=== PATIENT | male | born 1970 | race Caucasian/White ===

== ENCOUNTER 2018-12-25 21:43 | Inpatient (IN) ==
--- NOTE | 2018-12-25 22:13 | PROVIDER DOCUMENTATION ---
HPI-Chest Pain - General Chief Complaint: Chest Pain Stated Complaint: CHEST PAIN/SHOULDER/ARM PAIN-HISTORY OF HEART Time Seen by Provider: 12/25/18 22:00 Source: patient Allergies/Adverse Reactions: Patient Allergies Allergy/AdvReac Type Severity Reaction Status Date / Time No Known Allergies Allergy Verified 04/22/18 12:04 Home Medications: Home Medication List Medication Instructions Recorded Confirmed Last Taken Type NK [No Home Medications] 04/22/18 04/22/18 Unknown History - History of Present Illness-CP Nature of Presenting Problem: 48 YOM PRESENTS WITH C/O CP. HE REPORTS THIS HAS BEEN INTERMITTENT FOR THE LAST 6 MONTHS AND USUALLY STOPS WHEN HE RESTS BUT TONIGHT IT DID NOT STOP. HE REPORTS THE PAIN IS PRESSURE LIKE BUT SOMETIMES SHARP. HE REPORTS IT RADIATES TO HIS LEFT ARM AND SHOULDER. HE REPORTS THE CP IS ASSOCIATED WITH NAUSEA AND SWEATING BUT NOT VOMITING. HE DENIES SOB, PALPITATIONS, VOMITING, DIARRHEA OR OTHER ASSOCIATED SYMPTOMS Location: reports: substernal Chest Pain Radiation: reports: arms, shoulders Quality of Pain: reports: none Severity in ED: mild Onset/Duration: 1-3 hours ago, other (INTERMITTENT FOR THE LAST 6 MONTHS) Timing: still present, intermittent Context/Activities at Onset: reports: none Modifying Factors: improves with: nothing Associated Symptoms: reports: denies symptoms Nitro Today/Relief: no nitro taken today Aspirin Treatment Today: 81 mg x 4, provided at home Similar Symptoms Previously?: No Recently Seen Here or By Another Healthcare Provider: No Review of Systems - Adult - REVIEW OF SYSTEMS - ADULT Constitutional: reports: no symptoms reported. denies: see HPI, chills, fever, fatique, night sweats, weight gain, weight loss, other Eyes: reports: no symptoms reported. denies: see HPI, discharge, dry eyes, decreased vision, blurred vision, double vision, eye pain, redness, other Ears, Nose, Mouth & Throat: reports: no symptoms reported. denies: see HPI, ear discharge, ear pain, hearing loss, tinnitus, epistaxis, sinus problem, nose pain, loose teeth, mouth/dental pain, mouth swelling, hoarseness, throat pain, throat swelling, other Cardiovascular: reports: chest pain. denies: no symptoms reported, see HPI, edema, heart murmur, irregular heart rate, orthopnea, palpitations, poor circulation, PND, syncope, other Respiratory: reports: no symptoms reported. denies: see HPI, chronic cough, cough, dyspnea on exertion, excessive sputum production, hemoptysis, pleurisy, shortness of breath, wheezing, other Gastrointestinal: reports: no symptoms reported. denies: see HPI, abdominal pain, hematemesis, constipation, diarrhea, difficulty swallowing, frequent heartburn, nausea, poor appetite, rectal bleeding, vomiting, other Genitourinary: reports: no symptoms reported. denies: see HPI, dysuria, discharge, frequency, flank pain, frequent UTI's, hematuria, hesitency, incontinence, urinary retention, urgency, other Musculoskeletal: reports: no symptoms reported. denies: see HPI, bone pain, back pain, frequent leg cramps, joint pain, joint swelling, muscle aches, muscle weakness, neck pain, other Integumentary: reports: no symptoms reported. denies: see HPI, hives, hair loss, itching, mole changes, nail changes, rash, skin sores/ulcer, skin thickening, other Neurological: reports: no symptoms reported. denies: see HPI, ataxia, d izziness/vertigo, headache/migraines, loss of balance, numbness, paresthesia, seizure, slurred speech, syncope, tremors, other Psychiatric: reports: no symptoms reported. denies: see HPI, anxiety, anti- depressant use, alcohol/drug dependence, depression, emotional problems, insomnia, panic attacks, suicidal thoughts, other Endocrine: reports: no symptoms reported. denies: see HPI, change in skin pigment, excessive sweating, goiter, cold intolerance, heat intolerance, increased hunger, increased thirst, polyuria, other Hematologic/Lymphatic: reports: no symptoms reported. denies: see HPI, blood clots, easy bruising, low blood count, lymphedema, prolonged bleeding, swollen lymph nodes, transfusions, other Allergic/Immunologic: reports: no symptoms reported. denies: see HPI, allergic reactions, allergic rhinitis, asthma, eczema, food allergy, frequent infections, hay fever, hives, positive PPD, urticaria, other Past History - Adult - PAST MEDICAL HISTORY-ADULT Review of Records: reports: Nursing Assessment Review, Social history reviewed & non-contributory. Major Childhood Illnesses: reports: denies history Cardiovascular: reports: A-Fib, HTN Respiratory: reports: denies history Gastrointestinal: reports: denies history Obstetrical/Gynecological: reports: denies history Genitourinary: reports: kidney stones Musculoskeletal: reports: arthritis, chronic pain (leg), orthopedic injury Neurological: reports: Seizures/Epilepsy, other (DM neuropathy) Psychiatric: reports: anxiety, depression, other (alcoholism) Endocrine/Immune: reports: Diabetes Other Conditions: reports: denies history - PRIOR SURGERIES/PROCEDURES Surgical/Procedure History: reports: appendectomy, tonsillectomy, orthopedic (extremity) - IMMUNIZATION STATUS Childhood Immunizations: See Nurse Assessment Flu Vaccine: See Nurse Assessment - FAMILY HISTORY Family History: reviewed, not pertinent Physical Exam-General - PHYSICAL EXAM-ADULT Initial Vital Signs Reviewed: Yes - CONSTITUTIONAL General Appearance: appears well, alert, no apparent distress - EYES Eyes: PERRL/EOMI - HEAD, EARS, NOSE, MOUTH & THROAT HENMT: normocephalic/atraumatic, moist mucous membranes, normal ENT inspection - NECK Neck: non-tender, full range of motion, supple - RESPIRATORY Respiratory: chest non-tender, lungs clear, normal breath sounds - CARDIOVASCULAR Cardiovascular: normal peripheral pulses, regular rate, rhythm, no edema, no gallop, no JVD, no murmur - GASTROINTESTINAL (ABDOMEN) Abdominal Exam: normal bowel sounds, non tender, soft - LYMPHATIC Lymphatic: no adenopathy - MUSCULOSKELETAL Back Exam: normal inspection, no CVA tenderness, no vertebral tenderness Extremity: normal range of motion, non-tender, normal gait - SKIN Integumentary: normal color, normal turgor, warm/dry - NEUROLOGIC Neurologic: grossly normal - PSYCHIATRIC Psych/Mental Status: normal mood/affect, oriented x 3 - HEART Score HEART Score: History: Moderately Suspicious HEART Score: ECG: Non-Specific Repolarization Disturbance/LBBB/PM HEART Score: Age: 45-65 Years HEART Score: Risk Factors for Atherosclerotic Disease: > or = 3 Risk Factors or History of Atherosclerotic Disease HEART Score: Troponin: < or = Normal Limit Total HEART Score:: 5 Progress - PLAN OF CARE/RESULTS Progress/Plan/Lab Results: Vital Signs - 8 hr 12/25/18 21:46 12/25/18 22:14 12/25/18 22:55 Temperature 97.7 F Pulse Rate 105 H Respiratory Rate 16 Blood Pressure 190/126 174/123 166/115 O2 Sat by Pulse Oximetry 99 96 95 12/25/18 23:02 12/25/18 23:10 12/25/18 23:32 Temperature Pulse Rate 91 H 88 Respiratory Rate 25 H 22 Blood Pressure 163/118 168/118 O2 Sat by Pulse Oximetry 92 L 95 91 L Laboratory Results - last 24 hr 12/25/18 12/25/18 12/25/18 22:40 22:40 22:40 WBC 8.86 RBC 5.27 Hgb 16.0 Hct 46.6 MCV 88.4 MCH 30.4 MCHC 34.3 RDW Std Deviation 12.4 Plt Count 213 MPV 11.7 H Immature Gran % (Auto) 0.2 Neut % (Auto) 56.8 Lymph % (Auto) 31.7 [place] % (Auto) 8.4 Eos % (Auto) 2.7 Baso % (Auto) 0.2 Immature Gran # (Auto) 0.02 Neut # (Auto) 5.03 Lymph # (Auto) 2.81 [place] # (Auto) 0.74 H Eos # (Auto) 0.24 Baso # (Auto) 0.02 PT 12.2 INR 0.84 PTT (Actin FS) 28.1 Sodium 138 Potassium 4.0 Chloride 100 Carbon Dioxide 22 L Anion Gap 16 BUN 10 Creatinine 1.0 Estimated GFR/1.73 m2 > 60 BUN/Creatinine Ratio 10 Glucose 444 H* Calculated Osmolality 294 Calcium 9.2 Total Bilirubin 0.27 AST 20 ALT 20 Alkaline Phosphatase 89 Creatine Kinase 116 Troponin T Total Protein 6.7 Albumin 4.2 Globulin 2.5 Albumin/Globulin Ratio 1.7 12/25/18 22:40 WBC RBC Hgb Hct MCV MCH MCHC RDW Std Deviation Plt Count MPV Immature Gran % (Auto) Neut % (Auto) Lymph % (Auto) [place] % (Auto) Eos % (Auto) Baso % (Auto) Immature Gran # (Auto) Neut # (Auto) Lymph # (Auto) [place] # (Auto) Eos # (Auto) Baso # (Auto) PT INR PTT (Actin FS) Sodium Potassium Chloride Carbon Dioxide Anion Gap BUN Creatinine Estimated GFR/1.73 m2 BUN/Creatinine Ratio Glucose Calculated Osmolality Calcium Total Bilirubin AST ALT Alkaline Phosphatase Creatine Kinase Troponin T < 0.010 Total Protein Albumin Globulin Albumin/Globulin Ratio Orders Category Date Time Status FSBS [Finger Stick Blood Sugar (ED)] DIRECTED Care 12/25/18 23:59 Active cxr [CHEST-2 VIEWS] [RAD] Stat Exams 12/25/18 21:58 Taken CBC WITH ELECTRONIC DIFF [HEME] Stat Lab 12/25/18 22:40 Completed CK PROFILE [SP CHEM] Stat Lab 12/25/18 22:40 Completed COMPREHENSIVE METABOLIC PANEL [CHEM] Stat Lab 12/25/18 22:40 Completed PROTIME WITH INR [COAG] Stat Lab 12/25/18 22:40 Completed PTT [COAG] Stat Lab 12/25/18 22:40 Completed TROPONIN T Stat Lab 12/25/18 22:40 Completed Insulin Lispro [Humalog] Med 12/25/18 23:44 Discontinued See Protocol SUBQ NOW ONE Morphine Med 12/25/18 22:34 Discontinued 2 mg IV NOW ONE EKG [EKG] Stat Ther 12/25/18 21:56 Ordered Pt signed out to me by EMILY Mosquera, unstable angina, EKG shows new flipped t's in V5-6, will admit the patient Result Diagrams: 12/25/18 22:40 12/25/18 22:40 - EKG 1 Time of EKG reading by physician:: 21:52 EKG Read and Signed by:: Nicanor Miller EKG Interpretation (*Must complete 3 of following elements*): Abnormal Rate: 103 Rhythm: ST [place]: normal QRS: normal [place] Interval: normal ST Wave: non-specific ST changes Prior EKG Comparison: changes noted - XRAY 1 XRAY Study: Chest Impression: Normal - CHANGE OF SHIFT REPORT (ED Provider) 1 Report Given and Care Transferred to:: DR MILLER Time of Transfer: 00:15 Items Pending: Physician Consult/Arrival (AWAITING CALL BACK FROM DR GOMES FOR ADMISSION FOR CP RULEOUT) Departure - Departure Date of Disposition Decision: 12/26/18 Time of Disposition Decision: 01:02 DIAGNOSIS: Hyperglycemia Chest pain Qualifiers: Chest pain type: other chest pain Qualified Code(s): R07.89 - Other chest pain; R07.8 - Other chest pain Disposition: ADMITTED INPATIENT 09 Certified Medical Emergency: Emergent Condition: Stable Referrals and Follow-Ups: None,PCP [Primary Care Provider] - - Critical Care Note This patient required my direct & personal management of CC.: No Attestation - Physician/ GARY Attestation Patient care was provided by Advanced Practice Provider:: Yes Advanced Practice Provider:: Walker,Araceli M. Advanced Practice Provider documentation review:: The Mid-level provider documentation, treatment plan and medical decision making was reviewed by the physician who agrees with all treatment and medical decision making by the MLP. The physician spent face to face time with patient:: No Advanced Practice Provider documentation review:: Supervising physician onsite and consulted in the evaluation and care of this patient. The physician did not have a face to face encounter with the patient.
[2018-12-25] MEDS ORDERED: MORPHINE IV ONE (22:34)
[2018-12-25 22:56] LABS: BASO# 0.02 X1000 (0.0-0.2); BASO% 0.2 % (0.0-0.8); EOS# 0.24 X1000 (0.0-0.7); EOS% 2.7 % (0.0-10.0); HEMATOCRIT 46.6 % (42.0-52.0); IMM GRAN# 0.02 X1000 (0.0-0.04); IMM GRAN% 0.2 % (0.0-0.5); LYMPH# 2.81 X1000 (1.2-3.4); LYMPH% 31.7 % (20.5-51.1); MCH 30.4 PG (27-31); MCHC 34.3 g/dL (33-37); MCV 88.4 FL (81-99); MONO# 0.74 X1000 (0.11-0.59); MONO% 8.4 % (1.7-9.3); MPV 11.7 FL (7.4-10.4); NEUT# 5.03 X1000 (1.4-6.5); NEUT% 56.8 % (42.2-75.2); PLT 213 X1000 (130-400); RBC 5.27 XMIL (4.7-6.1); RDW 12.4 % (11.5-14.5); WBC 8.86 X1000 (4.8-10.8)
[2018-12-25 23:06] LABS: INR 0.84; PROTIME 12.2 Seconds (11.0-16.0)
[2018-12-25 23:07] LABS: PTT 28.1 Seconds (22.3-41.8)
[2018-12-25 23:42] LABS: AGAP 16; ALB/GLOB RATIO 1.7; ALBUMIN 4.2 g/dL (3.5-5.0); ALKALINE PHOSPHATASE 89 U/L (32-122); BUN 10 mg/dL (8-22); CALCIUM 9.2 mg/dL (8.8-10.2); CHLORIDE 100 mmol/L (98-107); CK PROFILE 116 U/L (24-204); COSMO 294; ESTIMATED GFR > 60; GLUCOSE 444 mg/dL (70-104); GOT 20 U/L (10-34); GPT 20 U/L (10-44); SODIUM 138 mmol/L (136-145); TCO2 22 mmol/L (25-35); TOTAL BILIRUBIN 0.27 mg/dL (0.20-1.00); TOTAL PROTEIN 6.7 g/dL (6.3-8.3)
[2018-12-25] MEDS ORDERED: HUMALOG SUBQ ONE (23:44)
--- NOTE | 2018-12-26 01:42 | HISTORY AND PHYSICAL ---
PRIMARY CARE PHYSICIAN: None. CHIEF COMPLAINT: Chest pain. HISTORY OF PRESENTING ILLNESS: A 48-year-old male with a history of diabetes mellitus type 2 and hypertension, had presented to emergency department with complaint of chest pain. He describes it as substernal with radiation to left upper extremity. The patient states that it seemed to be worsening. Subsequently, had come to the emergency department. In the ED, he was evaluated and due to presenting symptoms, it was thought that we will place him for observation for further evaluation and management. At the time of my examination, he denied any headache, fever, chills, nausea, vomiting, diarrhea, hemoptysis, melena, weight changes, but complained of chest pain. PAST MEDICAL HISTORY: Includes diabetes mellitus type 2, hypertension. PAST SURGICAL HISTORY: Left lower extremity surgery, tonsillectomy, appendectomy. ALLERGIES: No known drug allergies. CURRENT MEDICATIONS: He does not recall and nursing staff will reconcile. SOCIAL HISTORY: He smokes occasional cigars. History of alcohol abuse in the past. Denies any history of drug use. FAMILY HISTORY: Positive for coronary artery disease in Mother. REVIEW OF SYSTEMS: Fourteen-point review of system is as in HPI. Other systems negative. PHYSICAL EXAMINATION: GENERAL: Cooperative, friendly male. He is resting more comfortably now. VITAL SIGNS: Temperature 97.7 degrees, pulse 105, respirations 16, blood pressure 190/126. HEENT: Atraumatic, normocephalic. Extraocular movements intact. PERRLA. NECK: Supple. CHEST: Clear to auscultation. CARDIOVASCULAR: Regular rate and rhythm. S1, S2. ABDOMEN: Soft. Positive bowel sounds. EXTREMITIES: No edema. NEUROLOGIC: He is awake, alert, oriented x3. GENITOURINARY: No bladder distention. SKIN: Warm. LABORATORIES AND STUDIES: WBCs 8.86, hemoglobin 16.0, hematocrit 46.6, platelets 213,000. Sodium 138, potassium 4.0, chloride 100, CO2 of 22, BUN is 10, creatinine 1.0. Glucose 444. Troponin 0.010. ASSESSMENT: A 48-year-old male with a history of diabetes mellitus type 2 and hypertension, presented to emergency department with 1-day history of having chest pain. We will place the patient for observation for further evaluation and management. 1. Chest pain. 2. Diabetes mellitus type 2 with hyperglycemia. 3. Hypertension. PLAN: 1. We will admit patient to medical floor with telemetry. 2. Continue with cardiac workup. Check EKG, serial cardiac enzymes. Have patient continue on aspirin. Use nitroglycerin p.r.n. chest pain. 3. We will consult Cardiology. 4. Monitor blood glucose closely and put patient on sliding scale insulin regimen. 5. We will monitor blood pressure. Resume antihypertensive agents. 6. Put patient on DVT prophylaxis with SCD and Lovenox. 7. We will continue to follow and reassess, make further recommendation based on patient's clinical course. cc: Kar Nguyen MD
[2018-12-26] MEDS ORDERED: ZOFRAN IV PRN (02:40)
[2018-12-26] MEDS ORDERED: NITROGLYCERIN SL PRN (02:40)
[2018-12-26] MEDS: LOVENOX SUBQ SCH (03:37)
--- NOTE | 2018-12-26 04:59 | EKG Report ---
Test Performed on : 12/25/2018 9:50:06 PM Test Reason : cp Blood Pressure : / mmHG Vent. Rate : 103 BPM Atrial Rate : 103 BPM P-R Int : 126 ms QRS Dur : 102 ms QT Int : 364 ms P-R-T Axes : 036 043 270 degrees QTc Int : 476 ms Sinus tachycardia. Possible Inferior infarct , age undetermined Cannot rule out Anterior infarct , age undetermined ST & T wave abnormality, consider lateral ischemia Abnormal ECG When compared with ECG of 22-APR-2018 12:13, Borderline criteria for Inferior infarct are now present ST elevation has replaced ST depression in Anterior leads ST now depressed in Lateral leads Inverted T waves have replaced nonspecific T wave abnormality in Inferior leads Unconfirmed Result
[2018-12-26] MEDS: HUMULIN R SUBQ SCH ×4 (06:39→23:07)
[2018-12-26] MEDS: PRILOSEC PO SCH (06:39)
--- NOTE | 2018-12-26 07:49 | Diag Imaging Result Doc PS360 ---
EXAM: CHEST-2 VIEWS 12/25/2018 HISTORY: CP TECHNIQUE: PA and lateral chest COMMENT: There is no evidence of acute cardiac or pulmonary disease. Compared to 04/22/2018 there has been no significant change considering differences in technique. IMPRESSION: Stable chest. Electronically signed by Lucas Macedo 12/26/2018 7:48 AM
[2018-12-26] MEDS ORDERED: ASPIRIN PO SCH (09:00)
[2018-12-26] MEDS: PRINIVIL PO SCH ×2 (10:19→23:06)
--- NOTE | 2018-12-26 12:43 | EKG Report ---
Test Performed on : 12/26/2018 12:35:23 PM Test Reason : chest pain Blood Pressure : / mmHG Vent. Rate : 082 BPM Atrial Rate : 082 BPM P-R Int : 122 ms QRS Dur : 104 ms QT Int : 416 ms P-R-T Axes : 030 034 211 degrees QTc Int : 486 ms Normal sinus rhythm. Possible Inferior infarct (cited on or before 25-DEC-2018) Anterior infarct (cited on or before 25-DEC-2018) ST & T wave abnormality, consider lateral ischemia Abnormal ECG When compared with ECG of 25-DEC-2018 21:50, (Unconfirmed) Serial changes of Anterior infarct present Confirmed by Nick Kraft MD ([id number]) on 12/29/2018 8:17:33 PM
--- NOTE | 2018-12-26 12:51 | CARDIOLOGY CONSULTATION ---
DATE: 12/26/2018 HISTORY OF PRESENT ILLNESS: Mr. Doug Worthy is a 48-year-old gentleman with history of hypertension, diabetes, has been noncompliant with his medications. Has not taken any medications for the last couple of years. Comes with complaints of having recurrent episodes of chest discomfort intermittently, retrosternal with some radiation to the back and down the arms. This has been going on off and on for about 6 months. His blood pressure medication and diabetes medications he has not taken as he could not afford the medications. REVIEW OF SYSTEM: A 14-point review of systems was done.Gastrointestinal: There is no history of nausea, vomiting, diarrhea. There is no history of hematemesis or melena. Central nervous system: No focal weakness to suggest a CVA or TIA. Genitourinary: There is no dysuria or hematuria. PAST MEDICAL HISTORY: 1. Hypertension. 2. Diabetes. 3. History of atrial fibrillation, last evaluated at the [facility] in 2014. 4. History of alcohol abuse in the past, quit in 2014. 5. Currently he is not on any medications. OTHER PAST MEDICAL HISTORY: Include left lower extremity surgery, tonsillectomy appendectomy. SOCIAL HISTORY: Next he smokes cigars. PHYSICAL EXAMINATION: General: When he came into the hospital his, blood pressure was 190/126, currently blood pressure 134/70. Cardiovascular system: Normal jugular venous pressure. There no thyromegaly. No carotid bruit. First and second heart sounds were heard. There was no S3 gallop. Respiratory System: Normal air entry. There is no crepitations or rhonchi. Abdomen: Soft, nontender. There was no guarding or rigidity. Bowel sounds were heard. Central nervous system: Alert and oriented. Was moving all 4 extremities. Extremities: Revealed no pedal edema. HEENT: Atraumatic, normocephalic. Pupils were equal and reacting to light. LABORATORY DATA: The patient's cardiac enzymes were negative. WBC 8.86, hemoglobin 16, hematocrit 46, platelet count of 213,000. Glucose 444. Electrocardiogram revealed normal sinus rhythm with nonspecific ST-T changes. ASSESSMENT AND PLAN: 1. Mr. Doug Worthy is a 48-year-old gentleman who has history of hypertension, diabetes, atrial fibrillation in the distant past, has been noncompliant with all his medications, has not been on any medicines, comes with complaints of having recurrent episodes of chest discomfort over the last 6 months, worsened recently. His cardiac enzymes were negative. We will set him up to undergo Cardiolite stress test to rule out ischemia. We will get an echocardiogram to assess cardiac and valvular function. 2. He has been started on lisinopril. Blood pressures are better. We will add beta-blockers to his medical regimen. 3. Diabetes. Continue with his medications as planned. 4. We will add aspirin to his medical regimen. Prior to 2014, he had an episode of atrial fibrillation. He has been noncompliant. Currently he is in sinus rhythm. Thank you for the consult. We will follow hospital course. cc: Adarsh Juan MD
[2018-12-26] MEDS: LOPRESSOR PO SCH (14:14)
[2018-12-26] MEDS: TYLENOL PO PRN (18:53)
[2018-12-26] MEDS: MORPHINE IV PRN (18:54)
[2018-12-27] MEDS: LOVENOX SUBQ SCH ×2 (06:52→18:55)
[2018-12-27] MEDS: HUMULIN R SUBQ SCH ×4 (06:53→21:27)
[2018-12-27] MEDS: PRILOSEC PO SCH (06:55)
[2018-12-27 07:07] LABS: CHOLESTEROL 215 mg/dL (0-200); HDL 30 mg/dL (35-55); LDL 155 mg/dL; TRIGLYCERIDES 148 mg/dL (39-160); VLDL 30 mg/dL
[2018-12-27] MEDS ORDERED: LEXISCAN ONE (08:28)
[2018-12-27] MEDS: ASPIRIN PO SCH (11:33)
[2018-12-27] MEDS: LOPRESSOR PO SCH (11:33)
--- NOTE | 2018-12-27 13:56 | Diag Imaging Result Document ---
PROCEDURE NAME: MYOCARDIAL PERF SCAN, STR/REST - 12/26/2018 LEXISCAN CARDIOLITE STRESS TEST: Lexiscan was infused per standard protocol. Baseline electrocardiogram revealed normal sinus rhythm. Inferior Q-waves were noted with nonspecific ST-T changes. Stress electrocardiogram was nondiagnostic. Following Lexiscan infusion Cardiolite was injected. 28.4 mCi of Cardiolite was injected for the rest phase, 30.9 mCi of Cardiolite was injected for the stress phase. This was a 2 day protocol. Images revealed left ventricle was dilated. There is large size, severe defect in the left ventricular distal anteroapical wall diagnostic of infarct. In addition, there is a large size severe grade fixed defect in the inferior wall diagnostic of infarct. There is reversible perfusion defect in the inferolateral wall suggestive of anahi-infarct ischemia. Left ventricular ejection fraction by gated SPECT was 27%. CONCLUSIONS: 1. No chest pain. 2. Nondiagnostic stress electrocardiogram. Baseline ST-T changes noted. 3. Myocardial perfusion images reveal a cardiomyopathy picture. There is large size severe grade fixed defect in the distal anteroapical wall diagnostic of infarct. In addition, there is a large size severe grade fixed defect in the inferior wall again diagnostic of infarct. There is low-grade anahi-infarct ischemia in the inferolateral wall. Left ventricular ejection fraction by gated SPECT was 27%. cc: MD Maribell Wilson PA
[2018-12-27] MEDS: TYLENOL PO PRN (16:26)
--- NOTE | 2018-12-27 16:34 | ECHO REPORT ---
ORDER DATE: 12/27/2018 INTERPRETING PHYSICIAN: Dr. Adarsh Juan. ECHOCARDIOGRAPHIC MEASUREMENTS: 1. Interventricular septum 1.2 cm. 2. Left ventricular posterior wall 1.1 cm. 3. Diastolic diameter 5.6 cm. 4. Left atrium 3.9 cm. 5. Aorta 3.5 cm. SUMMARY OF THE 2-DIMENSIONAL IMAGIN. Normal left ventricular cavity size with severely reduced systolic function. 2. Estimated ejection fraction of 30%. 3. There is anteroseptal apical hypokinesis 4. Aortic valve leaflets are trileaflet. 5. Mitral valve was normal. 6. Tricuspid valve was normal. 7. Pulmonic valve was normal. 8. Peak velocity across the aortic valve less than 2 m/sec. 9. There is no aortic stenosis or regurgitation. 10. There is mild mitral regurgitation. 11. Mild tricuspid regurgitation. 12. Peak velocity across the tricuspid valve was less than 2 m/sec. 13. There is no pericardial effusion. cc: Adarsh Juan MD
[2018-12-27] MEDS: MORPHINE IV PRN (18:51)
[2018-12-27] MEDS: ENTRESTO 24 MG-26 MG TABLET PO SCH (21:27)
--- NOTE | 2018-12-27 21:58 | PROGRESS NOTE ---
DATE: 12/27/2018 SUBJECTIVE: Patient reports some chest discomfort, but no chest pain. That is on and off. He feels sometimes fatigued. Denies any nausea, vomiting. OBJECTIVE: Vital Signs: Temperature 98.4 degrees, heart rate 75, respiratory rate 18, blood pressure 120/84, O2 saturation 98% on room air. General: This is a 48-year-old male, lying in bed, in no acute distress. Cardiovascular: S1, S2 heard. No murmurs, gallops, or rubs. Regular rate and rhythm. Respiratory: Clear bilaterally to auscultation. No work of breathing or using accessory muscles. Abdomen: Soft, nontender to palpation. Bowel sounds present. No organomegaly. Extremities: No clubbing, cyanosis, or edema. Peripheral pulses present in both legs. Respiratory: The patient is alert, oriented x3. Moves 4 extremities. LABORATORY DATA: Reviewed. ASSESSMENT AND PLAN: 1. Chest pain. This is a patient who has history of hypertension, diabetes mellitus, and atrial fibrillation in the past. He came to the hospital complaining of chest pain. Patient has a strong family history with mom who of coronary artery disease when she was 36. The echocardiogram today basically showed severely reduced systolic function with ejection fraction of 30%, with anteroseptal apical hypokinesis. The myocardial perfusion test also shows some low-grade anahi-infarct ischemia in the inferolateral wall, and the ejection fraction was calculated to be 27%. In that regard, Cardiology is planning to do a left heart catheterization on Sunday. Patient has been started on Lovenox 1 mg/kg every 12 hours and aspirin as well. We will continue monitoring this patient closely. 2. Diabetes mellitus type 2. The patient is on sliding scale insulin at home. Apparently, he is not using anything. 3. Hypertension. Blood pressure is under control. Patient has been started on Entresto and metoprolol. Blood pressure has been between 100 and 128. Will continue with the same management. Lisinopril has been stopped. 4. Disposition. Will see what left heart catheterization on Sunday shows. cc: Oscar Canales MD
[2018-12-28] MEDS: MORPHINE IV PRN ×3 (04:29→23:31)
[2018-12-28] MEDS: PRILOSEC PO SCH (06:49)
[2018-12-28] MEDS: LOVENOX SUBQ SCH ×2 (06:50→17:39)
[2018-12-28] MEDS: HUMULIN R SUBQ SCH ×4 (06:50→21:14)
[2018-12-28] MEDS: ENTRESTO 24 MG-26 MG TABLET PO SCH ×2 (09:53→21:14)
[2018-12-28] MEDS: ASPIRIN PO SCH (09:53)
[2018-12-28] MEDS: LOPRESSOR PO SCH (09:53)
[2018-12-28 10:59] LABS: HEMATOCRIT 46.7 % (42.0-52.0); HEMOGLOBIN 15.8 g/dL (14.0-18.0); MCHC 33.8 g/dL (33-37); MCV 88.8 FL (81-99); MPV 11.6 FL (7.4-10.4); RBC 5.26 XMIL (4.7-6.1); RDW 12.2 % (11.5-14.5); WBC 9.01 X1000 (4.8-10.8)
[2018-12-28 11:00] LABS: HEMOGLOBIN A1C 9.1 % (4.8-6.0)
[2018-12-28 11:10] LABS: AGAP 10; BUN 11 mg/dL (8-22); CHLORIDE 101 mmol/L (98-107); COSMO 284; CREATININE 1.1 mg/dL (0.7-1.2); ESTIMATED GFR > 60; GLUCOSE 287 mg/dL (70-104); POTASSIUM 4.1 mmol/L (3.5-5.1); SODIUM 137 mmol/L (136-145); TCO2 26 mmol/L (25-35)
--- NOTE | 2018-12-28 21:07 | PROGRESS NOTE ---
DATE: 12/28/2018 SUBJECTIVE: The patient reports feeling fine. Denies any chest pain, shortness of breath. OBJECTIVE: Vital Signs: Temperature 97.9 degrees, heart rate 67, respiratory rate 20, blood pressure 132/79, O2 saturation 99% on room air. General: This is a 48-year-old, male, lying in bed, in no acute distress. Cardiovascular: S1, S2 heard. No murmurs, gallops, or rubs. Regular rate and rhythm. Respiratory: Clear bilaterally to auscultation. No work of breathing or use of accessory muscles. Abdomen: Soft, nontender to palpation. Bowel sounds present. No organomegaly. Extremities: No clubbing, cyanosis, or edema. Peripheral pulses present in both legs. Neurological: Patient is alert and oriented x3. Moves 4 extremities. LABORATORY DATA: Reviewed. ASSESSMENT AND PLAN: 1. Chest pain. Patient was admitted for this condition. Lexiscan basically showed severely depressed left ventricular systolic function. In that regard, in order to continue with the workup for this condition, we are going to do a left heart catheterization on Sunday to have a better visualization of the coronary anatomy and see the results of this cardiomyopathy. At this point, we will continue with Entresto and metoprolol. The patient has mentioned it to me that because of his lack of insurance, he wants to try some medications that are not really expensive. I do not think he will be able to afford Entresto. I think we will be able to continue with beta-blockers. 2. Hypertension. Blood pressure is under control. We will continue with same management. 3. Diabetes mellitus type 2. The patient is on sliding scale insulin and he will need insulin at home. I think will start insulin 70/30 at discharge. 4. Disposition. We will continue to monitor this patient closely. Plan is to do left heart catheterization on Sunday. cc: Oscar Canales MD
[2018-12-28] MEDS: LIPITOR PO SCH (21:14)
[2018-12-28] MEDS: COREG PO SCH (21:14)
--- NOTE | 2018-12-28 22:58 | PROGRESS NOTE ---
DATE: 12/28/2018 SUBJECTIVE: Patient relates some transient chest discomfort earlier but presently denies chest discomfort. There has been no shortness of breath. OBJECTIVE: Blood pressure 126/84 to 147/98, heart rate 72, oxygen saturation 99%. There is no significant jugular venous distention.Chest: Clear to auscultation. Cardiac Exam: Reveals a regular rate and rhythm without appreciable murmur or gallop. There is no evidence of peripheral edema. LABORATORY DATA: Includes a white blood cell count 9.0, hematocrit 46.7, hemoglobin 15.8, platelet count 219,000. Sodium 137, potassium 4.1, chloride 101, carbon dioxide 26, BUN 11, creatinine 1.1. Glucose 287. Triglycerides 148, total cholesterol 215, LDL cholesterol 155, HDL cholesterol 30. IMPRESSION: 1. Recurrent angina. 2. Abnormal stress myocardial perfusion study demonstrating fixed defect in the anteroapical region in the inferior wall with left ventricular ejection fraction of 20%. There was some low-grade anahi-infarct ischemia in the inferolateral wall. Multivessel coronary disease and ischemic cardiomyopathy suggested. 3. Diabetes mellitus. 4. Hypertension. PLAN: 1. Cardiac catheterization with selective coronary angiography planned for Sunday. 2. Initiate intensive statin therapy. 3. Arrange resting thallium study for viability which may help guide therapy. cc: Kole Sandoval MD MTDD
[2018-12-29] MEDS: PRILOSEC PO SCH (06:30)
[2018-12-29] MEDS: LOVENOX SUBQ SCH (06:31)
[2018-12-29] MEDS: HUMULIN R SUBQ SCH ×4 (06:31→20:29)
[2018-12-29 07:15] LABS: BASO# 0.02 X1000 (0.0-0.2); BASO% 0.2 % (0.0-0.8); EOS# 0.26 X1000 (0.0-0.7); EOS% 3.2 % (0.0-10.0); HEMATOCRIT 49.2 % (42.0-52.0); HEMOGLOBIN 16.7 g/dL (14.0-18.0); IMM GRAN# 0.02 X1000 (0.0-0.04); IMM GRAN% 0.2 % (0.0-0.5); LYMPH# 3.48 X1000 (1.2-3.4); LYMPH% 43.2 % (20.5-51.1); MCHC 33.9 g/dL (33-37); MCV 88.5 FL (81-99); MONO# 0.67 X1000 (0.11-0.59); MONO% 8.3 % (1.7-9.3); MPV 11.3 FL (7.4-10.4); NEUT# 3.61 X1000 (1.4-6.5); NEUT% 44.9 % (42.2-75.2); PLT 225 X1000 (130-400); RBC 5.56 XMIL (4.7-6.1); RDW 12.4 % (11.5-14.5); WBC 8.06 X1000 (4.8-10.8)
[2018-12-29 07:33] LABS: INR 0.88; PROTIME 12.7 Seconds (11.0-16.0)
[2018-12-29 07:45] LABS: AGAP 13; BUN 11 mg/dL (8-22); CALCIUM 8.7 mg/dL (8.8-10.2); CHLORIDE 102 mmol/L (98-107); COSMO 285; ESTIMATED GFR > 60; GLUCOSE 217 mg/dL (70-104); POTASSIUM 3.9 mmol/L (3.5-5.1); SODIUM 140 mmol/L (136-145); TCO2 25 mmol/L (25-35)
[2018-12-29] MEDS: ASPIRIN PO SCH (09:32)
[2018-12-29] MEDS: COZAAR PO SCH (09:32)
[2018-12-29] MEDS: COREG PO SCH ×2 (09:33→20:29)
[2018-12-29] MEDS: LIPITOR PO SCH (09:33)
--- NOTE | 2018-12-29 12:36 | PROGRESS NOTE ---
DATE: 12/29/2018 SUBJECTIVE: Patient reports feeling fine. He mentioned that he is having headaches for the last 3 days and he does not usually have headaches. He has not been given any nitroglycerin recently. OBJECTIVE: Vital Signs: Temperature 98.0 degrees, heart rate 67, respiratory rate 18, blood pressure 106/73, O2 saturation 97% on room air. General Examination: This is a 48-year-old male, lying in bed, in no acute distress. Cardiovascular: No S2 heard. No murmurs, gallops, or rubs. Regular rate and rhythm. Respiratory: Clear bilaterally to auscultation. No work of breathing or using accessory muscles. Abdomen: Soft, nontender to palpation. Bowel sounds present. No organomegaly. Extremities: No clubbing, cyanosis, or edema. Peripheral pulses present in both legs. Neurological: The patient is alert and oriented x3. Moves 4 extremities. LABORATORY DATA: Reviewed. ASSESSMENT AND PLAN: 1. Chest pain/cardiomyopathy. Patient clinically feeling fine with no chest pain. At this point, we are awaiting for left heart catheterization tomorrow and also recent thallium study for viability ordered by Cardiology as well. We will see what those exams show. 2. Hypertension. Blood pressure is under control. We will continue with the same management. 3. Diabetes mellitus type 2. We will continue with sliding scale insulin and accuchecks before meals and also at bedtime. 4. Disposition. As we mentioned before, pending left heart catheterization and resting thallium study. cc: Oscar Canales MD MTDD
--- NOTE | 2018-12-29 13:45 | Diag Imaging Result Doc PS360 ---
CT HEAD W/O CONTRAST - 12/29/2018 INDICATION: persistent headache COMPARISON: 07/06/2017 FINDINGS: There is stable mild periventricular white matter chronic microvascular disease. The ventricles and sulci are normal in size and contour. No intracranial mass or hemorrhage. The skull is intact. The sinuses, mastoids, and middle ears are clear. IMPRESSION: No acute disease or change from prior. This exam was performed using automated exposure control, adjustment of mA or kV according to patient size, and/or use of iterative reconstruction technique Electronically signed by Ted Donaldson 12/29/2018 1:43 PM
[2018-12-29] MEDS: TYLENOL PO PRN (14:12)
[2018-12-29] MEDS: MORPHINE IV PRN (20:29)
[2018-12-30] MEDS: HUMULIN 70/30 SUBQ SCH (06:14)
[2018-12-30] MEDS: HUMULIN R SUBQ SCH ×4 (06:14→21:15)
[2018-12-30] MEDS: PRILOSEC PO SCH ×2 (06:14→10:24)
[2018-12-30 06:28] LABS: HEMATOCRIT 50.6 % (42.0-52.0); HEMOGLOBIN 17.5 g/dL (14.0-18.0); MCH 31.1 PG (27-31); MCHC 34.6 g/dL (33-37); MPV 11.1 FL (7.4-10.4); RBC 5.62 XMIL (4.7-6.1); RDW 12.5 % (11.5-14.5); WBC 8.18 X1000 (4.8-10.8)
[2018-12-30 06:44] LABS: INR 0.88; PROTIME 12.6 Seconds (11.0-16.0); PTT 28.2 Seconds (22.3-41.8)
[2018-12-30 06:52] LABS: AGAP 12; BUN 11 mg/dL (8-22); CALCIUM 9.2 mg/dL (8.8-10.2); CHLORIDE 103 mmol/L (98-107); COSMO 279; ESTIMATED GFR > 60; GLUCOSE 176 mg/dL (70-104); POTASSIUM 4.1 mmol/L (3.5-5.1); SODIUM 138 mmol/L (136-145); TCO2 23 mmol/L (25-35)
[2018-12-30] MEDS: COREG PO SCH ×2 (10:22→21:15)
[2018-12-30] MEDS: LIPITOR PO SCH (10:22)
[2018-12-30] MEDS: COZAAR PO SCH (10:22)
[2018-12-30] MEDS: ASPIRIN PO SCH (10:22)
--- NOTE | 2018-12-30 11:06 | CARDIOLOGY PROGRESS NOTE ---
DATE: 12/30/2018 SUBJECTIVE: Overnight, no chest pain. There are no palpitations. There is no dizziness or syncope. OBJECTIVE: Vital Signs: Blood pressure 118/84. Cardiovascular System: Normal jugular venous pressure. There was no thyromegaly. There was no carotid bruit. First and second heart sounds were heard. There is no S3, S4, or gallop. Respiratory System: Normal air entry. There are no crepitations or rhonchi. Abdomen was soft, nontender. There was no guarding or rigidity. Bowel sounds were heard. Central Nervous System: Alert and was moving all 4 extremities. Examination of the extremities revealed no pedal edema. HEENT: Atraumatic, normocephalic. Pupils were equal and reacting to light. Laboratory Examination: Revealed a sodium of 138, potassium 4.1, BUN 11, creatinine 1.0. PROBLEM LIST: 1. The patient has been noncompliant. 2. Chest pain with abnormal stress test. 3. Hypertension. 4. Left ventricular dysfunction. 5. Diabetes. PLAN: 1. The patient is going to have a thallium viability scan, followed by a left heart catheterization today. The risks, benefits, and alternatives were explained. Patient will be set up for a left heart catheterization as well today. 2. As far as his medications are concerned, he is on omeprazole 20, losartan 50, insulin 70/30 with 15 units subcutaneous a.c., atorvastatin 40, enteric-coated aspirin 81 mg a day, Coreg 6.25 mg twice daily. He was on Lovenox which has been held this morning. cc: Adarsh Juan MD
[2018-12-30] MEDS ORDERED: NS ONE (12:01)
[2018-12-30] MEDS ORDERED: HEPARIN ONE (12:01)
[2018-12-30] MEDS ORDERED: XYLOCAINE 1% ONE (12:03)
[2018-12-30] MEDS ORDERED: HEPARIN 1000 UNITS/NS 2,000 UNIT/1,000 ML IV.SOLN ONE (12:12)
[2018-12-30] MEDS ORDERED: MORPHINE ONE (12:30)
[2018-12-30] MEDS ORDERED: VERSED ONE (12:30)
[2018-12-30] MEDS ORDERED: NS 1,000 ML ONE (12:31)
[2018-12-30] MEDS ORDERED: ANESTHESIA PB SET 88 IN 5742 ONE (12:31)
[2018-12-30] MEDS ORDERED: CLAVE TWINSITE 32 IN 11959 ONE (12:31)
[2018-12-30] MEDS ORDERED: NS 1,000 ML IV SCH ×2 (14:00→15:15)
--- NOTE | 2018-12-30 14:15 | EKG Report ---
Test Performed on : 12/30/2018 2:09:57 PM Test Reason : post [facility] Blood Pressure : / mmHG Vent. Rate : 083 BPM Atrial Rate : 083 BPM P-R Int : 122 ms QRS Dur : 108 ms QT Int : 378 ms P-R-T Axes : 040 027 211 degrees QTc Int : 444 ms Normal sinus rhythm. Inferior infarct (cited on or before 25-DEC-2018) Cannot rule out Anterior infarct (cited on or before 25-DEC-2018) T wave abnormality, consider lateral ischemia Abnormal ECG When compared with ECG of 26-DEC-2018 12:35, No significant change was found Confirmed by Swapnil OLIVA, Nick ([id number]) on 01/01/2019 8:56:26 AM
[2018-12-30] MEDS: LOVENOX SUBQ SCH (17:01)
--- NOTE | 2018-12-30 18:11 | PROGRESS NOTE ---
DATE: 12/30/2018 SUBJECTIVE: I checked this patient in the morning and he reported no chest pain, no palpitations, no shortness of breath. OBJECTIVE: Vital Signs: Temperature 98.7 degrees, heart rate 86, respiratory rate 20, blood pressure 112/73, O2 saturation 100% on room air. General: This is a 48-year-old male, lying in bed, in no acute distress. HEENT: Head is normocephalic, atraumatic. Neck: No JVD noted. No carotid bruits. No lymphadenopathy. No thyromegaly. Cardiovascular: S1, S2 heard. No murmurs, gallops, or rubs. Regular rate and rhythm. Respiratory: Clear bilaterally to auscultation. No work of breathing or using accessory muscles. Abdomen: Soft, nontender to palpation. Bowel sounds present. No organomegaly. No signs of peritoneal irritation. Extremities: No clubbing, cyanosis, or edema. Peripheral pulses present in both legs. Neurological: Patient alert and oriented x3. Moves all 4 extremities. LABORATORY DATA: Reviewed. ASSESSMENT AND PLAN: 1. Chest pain, newly found left ventricular systolic dysfunction. Patient clinically is doing fine. He was initially admitted to the hospital for chest pain, and we found out in the Lexiscan stress test this low ejection fraction. In that regard, we have consulted Cardiology who has decided to do a thallium viability scan followed by left heart catheterization. Depending upon those results, we will see what is the next step in the management of this patient. Cardiology input appreciated. 2. Hypertension. Blood pressure is under control. We will continue with the same management. 3. Diabetes mellitus type 2. We will continue with sliding scale insulin, Accu-Chek before meals and also at bedtime. 4. Disposition. Depending upon the results of those tests ordered by Cardiology. cc: Oscar Canales MD
[2018-12-30] MEDS: MORPHINE IV PRN (21:37)
[2018-12-31 05:41] LABS: HEMATOCRIT 47.4 % (42.0-52.0); HEMOGLOBIN 16.1 g/dL (14.0-18.0); MCH 30.9 PG (27-31); MPV 11.5 FL (7.4-10.4); RBC 5.21 XMIL (4.7-6.1); RDW 12.5 % (11.5-14.5); WBC 8.77 X1000 (4.8-10.8)
[2018-12-31] MEDS: PRILOSEC PO SCH (06:23)
[2018-12-31] MEDS: HUMULIN 70/30 SUBQ SCH (06:25)
[2018-12-31] MEDS: HUMULIN R SUBQ SCH ×2 (06:26→11:13)
[2018-12-31] MEDS: LOVENOX SUBQ SCH (06:26)
[2018-12-31] MEDS: COZAAR PO SCH (08:43)
[2018-12-31] MEDS: LIPITOR PO SCH (08:43)
[2018-12-31] MEDS: ASPIRIN PO SCH (08:43)
[2018-12-31] MEDS: COREG PO SCH (08:43)
--- NOTE | 2018-12-31 10:06 | PROGRESS NOTE ---
DATE: 12/31/2018 SUBJECTIVE: The patient reports feeling fine. Denies any chest pain, fever or chills. OBJECTIVE: Vital Signs: Temperature 97.9 degrees, heart rate 69, respiratory rate 16, blood pressure 108/81, O2 saturation 99% on room air. General Examination: This is a 48-year-old male, lying in bed in no acute distress. Cardiovascular exam: S1, S2 heard. No murmurs, gallops, or rubs. Regular rate and rhythm. Respiratory exam: Clear bilaterally to auscultation. No work of breathing or using accessory muscles. Abdomen: Soft, nontender to palpation. Bowel sounds present. No organomegaly. No signs of peritoneal irritation. Extremities: No clubbing, cyanosis, or edema. Peripheral pulses present in both legs. Neurological exam: Patient alert and oriented x3. Moves 4 extremities. LABORATORY DATA: Reviewed. ASSESSMENT AND PLAN: 1. Coronary artery disease/chest pain/left ventricular systolic dysfunction. Clinically this patient is not having any more episodes of chest pain. The patient was supposed to have left heart catheterization yesterday. I do not have the official report, but apparently has been verbally reported that he has diffuse coronary artery disease. In that regard, he also is going to have thallium viability scan the second part today, and we will see what Cardiology decides. Apparently patient has been told that he will go to [facility] for further management. We will follow Cardiology recommendation. 2. Hypertension. Blood pressure is under control. We will continue with the same management. 3. Diabetes mellitus type 2. We will continue with the sliding scale insulin. Accu-Chek before meals and also at bedtime. 4. Disposition: We are following the lead from Cardiology. cc: Oscar Canales MD
--- NOTE | 2018-12-31 11:06 | Diag Imaging Result Document ---
PROCEDURE NAME: MYOCARDIAL PERFU SCAN, REST - 12/30/2018 PROCEDURE: Thallium viability scan. FINDINGS: 3.4 mCi of thallium was injected per standard protocol. Viability scans were done over a 24 hour period. There is a large size fixed defect in the inferior wall and in the left ventricular apex. There is no viability in this area. However, viability is noted in the anterior wall. CONCLUSIONS: 1. Myocardial viability is present in the anterior wall. 2. There is large size fixed defect in the inferior wall and in the left ventricular apex diagnostic of scar. cc: MD Kole Wilson MD [facility]
[2018-12-31 11:51] VITALS: BP 108/82
[2018-12-31] MEDS ORDERED: INSULIN PEN NEEDLES ONE (15:14)
--- NOTE | 2019-01-01 13:35 | DISCHARGE SUMMARY ---
ADMISSION DATE: 12/26/2018 DISCHARGE DATE: 12/31/2018 DISCHARGE DIAGNOSES: 1. Coronary artery disease. 2. Chest pain. 3. Diabetes mellitus type 2. 4. Hypertension. CONSULTATIONS: Dr. Juan from cardiology. PROCEDURES: 1. Myocardial perfusion nuclear medicine showed a cardiomyopathy picture with an ejection fraction of 27%. There is also a large size, severe, fixed defect in the inferior wall, again diagnostic of infarct, a low-grade anahi-infarct ischemia in the inferolateral wall. 2. Head CT was unremarkable. 3. Echocardiogram Doppler showed ejection fraction of 30% with anteroseptal, apical hypokinesis. No pericardial effusion. 4. Cardiac catheterization dictation is still pending. HOSPITAL COURSE: In brief, this is a 48-year-old, male with a past medical history of hypertension, diabetes mellitus, apparently he has not been compliant with his medication. He presented to the emergency department complaining of chest pain. He has a strong family history of coronary artery disease with mom who of a myocardial infarction at age 36. He was evaluated by cardiology and they ordered initially an echocardiogram with a Lexiscan, with the results as above. Then a left heart catheterization was performed with results not reported yet officially but verbally, it was reported that he has diffuse coronary artery disease. Then they consulted with cardiology service at [facility] and they finally decided to send this patient to [facility] for further evaluation and treatment. DISCHARGE PHYSICAL EXAMINATION: Temperature 97.9 degrees, heart rate 69, respiratory rate 16, blood pressure 108/81, O2 saturation 99% on room air. General Examination: This is a 48-year-old male, lying in bed, in no acute distress. Cardiovascular Examination: S1 and S2 heard. No murmurs, gallops, or rubs. Regular rate and rhythm. Respiratory Examination: Clear bilaterally to auscultation. No work of breathing or using accessory muscles. Abdomen: Soft. Nontender to palpation. Bowel sounds present. No organomegaly. Extremities: No clubbing, cyanosis, or edema. Peripheral pulses present in both legs. Neurological Examination: The patient is alert and oriented x3. Moves 4 extremities. DISCHARGE DISPOSITION: Patient is being transferred to [facility]. He is going under the care of the cardiology service. cc: Oscar Canales MD
--- NOTE | 2019-01-03 09:44 | CARDIAC CATH REPORT ---
PROCEDURE NAME: - PROCEDURES PERFORMED: 1. Left heart catheterization. 2. Selective coronary angiography. 3. Left ventriculography. INDICATIONS: Further evaluation of ischemic cardiomyopathy and abnormal stress myocardial perfusion study in 48-year-old diabetic. Entry site right femoral artery catheters used: 5-[place] JL4, 3DRC, and angled pigtail. TECHNIQUE: After intravenous sedation with morphine and Versed, local anesthesia with lidocaine was applied over right femoral artery. Arterial access was established with placement of a 5- [place] sheath in the right femoral artery using modified Seldinger technique. Selective coronary angiography was performed followed by left heart catheterization and left ventriculography. Upon completion of procedure, arterial sheath was removed from right femoral artery and hemostasis facilitated with manual pressure. The patient tolerated the procedure without apparent complications. FINDINGS: Hemodynamics: Aortic pressure 117/45 with a mean of 65, left ventricular pressure 112 over EDP of 12. Comments on hemodynamics: There is no significant gradient across aortic valve demonstrated on pullback from left ventricle. ANGIOGRAPHY: 1. Left ventriculogram: The left ventricle is borderline enlarged with estimated left ventricular ejection fraction 25 to 30 percent. There is akinesis of the apex, apical inferior wall, and basal to mid inferior wall. There is hypokinesis of the mid inferior wall. There is no significant mitral regurgitation. 2. Left main coronary: Left main coronary is free of significant coronary stenosis. 3. Left anterior descending coronary: Left anterior descending coronary demonstrates a moderate very proximal stenosis of approximately 50% severity. There is a large diagonal branch arising from the proximal left anterior descending coronary that demonstrates a severe (90%) ostial stenosis. Within this large first diagonal branch there is a stenosis in the more superior ramus of the diagonal branch of about 80% severity. Beyond this point, the left anterior descending coronary demonstrates a very severe coronary atherosclerosis in a diffuse pattern. The proximal to mid left anterior descending coronary demonstrates an 80 to 90 percent stenosis. A small second diagonal branch arises just thereafter. There is moderate diffuse atherosclerosis for a short segment, after which a medium-sized third diagonal branch is demonstrated which demonstrates severe diffuse atherosclerosis. The apical portion of the left anterior descending coronary demonstrates severe diffuse atherosclerosis with up to 95% narrowing. The very distal left anterior descending coronary consists of a small branch serving the very apex left ventricle. 4. Left circumflex: The left circumflex coronary demonstrates a severe (80%) proximal stenosis. The mid to distal left anterior descending coronary also demonstrates a severe (greater than 90%) stenosis. 5. Right coronary: The right coronary demonstrates proximal occlusion. The distal right coronary can be seen receiving faint [id number] homocollaterals to what appears to be acute marginal branch and RV branch. There is a remnant of the posterior descending artery that could be seen receiving collaterals from the left coronary system. CONCLUSIONS: 1. Severe ischemic cardiomyopathy. 2. Severe diffuse multivessel coronary atherosclerosis. Potential target vessels for revascularization include large first diagonal branch and distal left circumflex coronary. RECOMMENDATIONS: CV Surgery consultation to assist in considering revascularization options. cc: Kole Sandoval MD MTDD
== END 2018-12-31 15:52 | disposition short-term general hospital (02) | DRG 287 ==
LOC: ED 21:43 → 3N 21:43 → OBSVTOIN 12-26 01:44 → SUATTDRO 12-26 01:44 → 3N 12-26 11:02 → 3S 12-30 13:59
PROVIDERS: ATTEND Internal Medicine
CPT/HCPCS: 70450; 71020; 71046; 78451; 78452; 80048; 80053; 80061; 82550; 82565; 82948; 83036; 83735; 83880; 84484; 85025; 85027; 85610; 85730; 93005; 93010; 93017; 93306; 93458; 94761; 96374; 99285; A9270; A9500; A9505; J1644; J1650; J1815; J2250; J2270; J2785; J7030; Q9967; XXXXX